=== PATIENT | male | born 1950 | race African-American/Black ===

== ENCOUNTER 2020-05-16 19:14 | Emergency (ER) | payer MEDICARE, OTHER ==
[2020-05-16 19:25] VITALS: BP 140/83
[2020-05-16] MEDS ORDERED: DEXAMETHASONE SOD PHOS INJ 10 MG/1 ML VIAL IM ONE (19:36)
[2020-05-16] MEDS ORDERED: HYDROCODONE/ACETAMINOPHEN 5-325 MG (6 TAB/ER DISP) PO PRN (19:36)
[2020-05-16] MEDS ORDERED: HYDROCODONE/ACETAMINOPHEN 5-325 MG TABLET PO ONE (19:36)
--- NOTE | 2020-05-16 19:43 | ER Document Report ---
ED Extremity Problem, Upper - General Chief Complaint: Arm Pain Stated Complaint: ARM PAIN, PINCHED NERVE IN NECK Time Seen by Provider: 05/16/20 19:25 Mode of Arrival: Ambulatory Information source: Patient TRAVEL OUTSIDE OF THE [place] IN LAST 30 DAYS: No - HPI Patient complains to provider of: Pain, Right, Arm Notes: Patient with complaints of right arm pain. The patient has a history of a pinched nerve in his neck. He states that he is in the process of having a fusion performed shortly due to the pinched nerve. He states that he has chronic pain in the right arm due to this pinched nerve. Over the last few days, the pain is gotten significantly worse. He denies any new fall, trauma or injury. He is not on blood thinning medications. He denies fever. He denies IV drug use. No chest pain or shortness of breath. No abdominal pain. No nausea, vomiting, diarrhea. Pain is constant, moderate to severe, worse with movement, nothing seems to make it better. He denies any numbness, tingling, weakness. No bowel or bladder dysfunction. No rash. No other complaints. - Related Data Allergies/Adverse Reactions: No Known Allergies Allergy (Unverified 04/07/11 13:32) Home Medications: Lantus. Aspirin Past Medical History - Social History Smoking Status: Never Smoker Frequency of alcohol use: None Lives with: Alone Family History: Reviewed & Not Pertinent - Past Medical History Cardiac Medical History: Reports: Hx Hypercholesterolemia, Hx Hypertension Endocrine Medical History: Reports: Hx Diabetes Mellitus Type 1 Psychiatric Medical History: Reports: Hx Depression Past Surgical History: Reports: Hx Cardiac Catheterization - stent x1 - Immunizations Hx Diphtheria, Pertussis, Tetanus Vaccination: Yes - 2007 Hx Pneumococcal Vaccination: 04/30/08 Review of Systems - Review of Systems -: Yes All other systems reviewed and negative Physical Exam - Vital signs Vitals: Temp Pulse BP Pulse Ox 98.0 F 74 140/83 H 98 05/16/20 19:24 05/16/20 19:24 05/16/20 19:24 05/16/20 19:24 - Notes Notes: GENERAL: alert, cooperative, nontoxic, no distress. HEAD: normocephalic, atraumatic EYES: conjunctiva pink without discharge, no external redness or swelling. EARS: no external swelling, no external redness NOSE: atraumatic, no external swelling MOUTH/THROAT: mucous membranes moist and pink NECK: soft, supple, full range of motion, no meningismus. CHEST: no distress, lungs clear and equal throughout. No wheezing, rales, rhonchi. CARDIAC: regular rate and rhythm, no murmur EXTREMITIES: full range of motion of all extremities. No redness, no swelling. No tenderness to palpation. Normal pulse and sensation distally. 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 Normal reflexes. NEURO: alert and oriented 3, no focal deficits, full range of motion of all extremities. PYSCH: appropriate mood, affect. Patient is cooperative. SKIN: pink, warm, dry, no rash. Course - Re-evaluation Re-evalutation: 05/16/20 19:40 Patient is nontoxic-appearing stable vitals. Here with complaints of right arm pain. The patient has a history of some cervical radiculopathy and is in the process of having a cervical fusion performed shortly. Over the last few days has had increased pain in his right arm. He denies any new fall, trauma or injury. No sign of epidural abscess/bleed, discitis. He has a nonfocal neurological exam. Neurovascular he is intact. There is no redness or swelling. No sign of DVT. He states that this feels like his typical pain but much worse than normal. He does not take any sort of pain medication other than [id number] medications. He denies any blood thinning medications. Patient's exam is consistent with cervical radiculopathy. Remainder of his exam is unremarkable. Patient will be given a dose of Decadron and a dose of pain medication here in the emergency department. He will be discharged home on NSAIDs and a small supply of pain medication. Follow-up with his neurosurgeon at the next available appointment. Follow-up sooner for worsening pain, fever, numbness, tingling, weakness, swelling, chest pain or shortness of breath, or any further concerns. The patient's emergency department workup and current diagnosis were explained to the patient and or family. Follow-up instructions were provided. Medications if prescribed were discussed. Instructions for when to return to the emergency department including specific worrisome symptoms were discussed with the patient and/or family. - Vital Signs Vital signs: Temp Pulse Resp BP Pulse Ox 98.0 F 74 140/83 H 98 05/16/20 19:24 05/16/20 19:24 05/16/20 19:24 05/16/20 19:24 - Laboratory Results Critical Laboratory Results Reviewed: No Critical Results - Radiology Results Critical Radiology Results Reviewed: No Critical Results Discharge - Discharge Clinical Impression: Cervical radiculopathy Condition: Stable Disposition: HOME, SELF-CARE Instructions: Radiculopathy ([facility]) Additional Instructions: Take medication as prescribed. Follow-up with your doctor at the next available appointment. Follow-up sooner for worsening pain, fever, redness, swelling, numbness, tingling, weakness, chest pain or shortness of breath, or any further concerns. Prescriptions: Diclofenac Sodium [Voltaren 50 Mg Tablet.] 50 mg PO BID #20 tablet. Referrals: [facility] [Provider Group] - Follow up as needed
== END 2020-05-16 19:55 | disposition home or self-care (01) ==
LOC: ER 19:14
DX: M54.12 Radiculopathy, cervical region (principal); M79.601 Pain in right arm; E78.00 Pure hypercholesterolemia, unspecified; I10 Essential (primary) hypertension; E10.9 Type 1 diabetes mellitus without complications
CPT/HCPCS: 99284; 96372; J1100; A9270 ×2